=== PATIENT | female | born 1975 | race American Indian/Alaskan Native ===

== ENCOUNTER 2017-07-12 01:22 | Emergency (ER) | payer SELFPAY ==
[2017-07-12 01:47] VITALS: BP 147/115
== END 2017-07-12 01:23 | disposition left against medical advice (07) ==
LOC: ED 01:22
DX: M54.9 Dorsalgia, unspecified (principal); Z53.21 Procedure and treatment not carried out due to patient leaving prior to being seen by health care provider

== ENCOUNTER 2018-08-31 16:08 | Emergency (ER) | payer OTHER ==
[2018-08-31 16:51] VITALS: BP 143/96
--- NOTE | 2018-08-31 16:53 | Emergency Department Report ---
Blank Doc - Documentation Documentation: C/O urinary frequency since she has started drinking water again. This initial assessment diagnostic orders/clinical plan/treatment (s) is/Are subject change based on patient's health status, clinical progression and re- assessment by fellow clinical providers in the ED. Further treatment and work-up at subsequent clinical providers discretion. Patient/guardians urged not to elope from s their condition may be serious if not clinically assessed and managed. Inital order include:
[2018-08-31 17:47] LABS: Bilirubin,Urine NEG (Negative); Blood,Urine NEG (Negative); Color,Urine Yellow (Yellow); Mucus,Urine 3+ /HPF; Urobilinogen,Urine < 2.0 mg/dL (<2.0)
--- NOTE | 2018-08-31 19:53 | Emergency Department Report ---
ED General Adult HPI - General Chief complaint: Urogenital-Female Stated complaint: FREQUENT URINATING Time Seen by Provider: 08/31/18 16:51 Source: patient Mode of arrival: Ambulatory Limitations: No Limitations - History of Present Illness Initial comments: 42-year-old female to emergency Department complaining of a one to 2 week history of increased urinary urgency and increased urinary frequency. States that previously she had a urinary tract infection that started in this fashion and so she was worried about the develop an infection, although she's had no burning, no odor, no fever, no chills, no hematuria or flank pain. Reports no nausea, vomiting, chest pain, palpitations. No vaginal discharge is appreciated. -: Gradual Radiation: non-radiation Severity scale (0 -10): 5 Consistency: constant Improves with: none - Related Data Home Medications Medication Instructions Recorded Confirmed Last Taken Gabapentin [Neurontin] 600 mg PO Q8H 08/24/13 08/24/13 08/24/13 Previous Rx's Medication Instructions Recorded Last Taken Type HYDROcodone/APAP 5-325 [[place] 1 each PO Q6HR PRN #15 tablet 08/24/13 Unknown Rx 5/325 mg] Phenazopyridine [Pyridium] 200 mg PO TID #9 tab 08/31/18 Unknown Rx Allergies Allergy/AdvReac Type Severity Reaction Status Date / Time No Known Allergies Allergy Verified 08/31/18 16:18 ED Review of Systems ROS: Stated complaint: FREQUENT URINATING Other details as noted in HPI Constitutional: denies: chills, fever Eyes: denies: eye pain, eye discharge, vision change ENT: denies: ear pain, throat pain Respiratory: denies: cough, shortness of breath, wheezing Cardiovascular: denies: chest pain, palpitations Endocrine: no symptoms reported Gastrointestinal: denies: abdominal pain, nausea, diarrhea Genitourinary: frequency. denies: urgency, dysuria, discharge Musculoskeletal: denies: back pain, joint swelling, arthralgia Skin: denies: rash, lesions Neurological: denies: headache, weakness, paresthesias Psychiatric: denies: anxiety, depression Hematological/Lymphatic: denies: easy bleeding, easy bruising ED Past Medical Hx - Past Medical History Previous Medical History?: No - Surgical History Past Surgical History?: No - Social History Smoking Status: Never Smoker Substance Use Type: None - Medications Home Medications: Home Medications Medication Instructions Recorded Confirmed Last Taken Type Gabapentin [Neurontin] 600 mg PO Q8H 08/24/13 08/24/13 08/24/13 History HYDROcodone/APAP 5-325 [[place] 1 each PO Q6HR PRN #15 tablet 08/24/13 Unknown Rx 5/325 mg] Phenazopyridine [Pyridium] 200 mg PO TID #9 tab 08/31/18 Unknown Rx ED Physical Exam - General Limitations: No Limitations General appearance: alert, in no apparent distress - Head Head exam: Present: atraumatic, normocephalic - Eye Eye exam: Present: normal appearance, PERRL, EOMI Pupils: Present: normal accommodation - ENT ENT exam: Present: mucous membranes moist - Neck Neck exam: Present: normal inspection, full ROM. Absent: tenderness, lymphadenopathy - Respiratory Respiratory exam: Present: normal lung sounds bilaterally. Absent: respiratory distress, wheezes, rales, rhonchi, chest wall tenderness, accessory muscle use, decreased breath sounds - Cardiovascular Cardiovascular Exam: Present: regular rate, normal rhythm. Absent: systolic murmur, diastolic murmur, rubs, gallop - GI/Abdominal GI/Abdominal exam: Present: soft, normal bowel sounds - Extremities Exam Extremities exam: Present: normal inspection - Back Exam Back exam: Present: normal inspection - Neurological Exam Neurological exam: Present: alert, oriented X3 - Psychiatric Psychiatric exam: Present: normal affect, normal mood - Skin Skin exam: Present: warm, dry, intact, normal color. Absent: rash ED Course Vital Signs 08/31/18 16:48 Temperature 98.9 F Pulse Rate 88 Respiratory 14 Rate Blood Pressure 143/96 O2 Sat by Pulse 99 Oximetry Critical care attestation.: If time is entered above; I have spent that time in minutes in the direct care of this critically ill patient, excluding procedure time. ED Disposition Clinical Impression: Polyuria Disposition: DC-01 TO HOME OR SELFCARE Is pt being admited?: No Does the pt Need Aspirin: No Condition: Stable Instructions: Dysuria (ED) Prescriptions: Phenazopyridine [Pyridium] 200 mg PO TID #9 tab Referrals: NAVJOT VALLEJO [Other] - 3-5 Days
== END 2018-08-31 19:50 | disposition home or self-care (01) ==
LOC: ED 16:08
DX: R35.8 Other polyuria (principal)
CPT/HCPCS: 81001; 82962; 99283